=== PATIENT | male | born 1965 | race Caucasian/White ===

== ENCOUNTER 2020-11-04 06:06 | Day surgery (SDC) | payer MEDICARE, OTHER ==
[2020-11-01 11:12] LABS: COVID AG,FIA SOURCE NASOPHARYNGEAL
[~2020-11-04 06:06] MED LIST: ALBU6.7H9 IH; ALEN35TA53 PO; BACL20TA PO; BUDE10.2 IH; DULO30CA89 PO; GABA600T10 PO; MELO-108 PO; NYST100033 PO; OMEP20CA12 PO; ROPI2TAB26 PO; SODIUM CHLORIDE 0.9% 0 ML ONE; SODIUM CHLORIDE 0.9% 1,000 ML ONE; TRAM50TA4 PO; UMEC62.5 PO
[2020-11-04] MEDS ORDERED: ALBUTEROL SULFATE 2.5 MG/0.5 ML NEB SOLUTION NEB ONE (06:07)
[2020-11-04] MEDS ORDERED: BENZOCAINE 20% 50 MCG/SPRAY 57 GM TP ONE (06:07)
[2020-11-04] MEDS ORDERED: LIDOCAINE 2% 30 ML JELLY TP ONE (06:07)
[2020-11-04] MEDS ORDERED: SODIUM CHLORIDE 0.9% 1,000 ML IV ONE (06:30)
[2020-11-04] MEDS ORDERED: FentaNYL CITRATE PF 100 MCG/2 ML VIAL ONE (07:23)
[2020-11-04] MEDS ORDERED: MIDAZOLAM HCL 5 MG/ML VIAL ONE (07:24)
[2020-11-04] MEDS ORDERED: MethylPREDNISolone SOD SUCC 125 MG/2 ML VIAL IVP ONE (09:00)
[2020-11-04] MEDS ORDERED: MethylPREDNISolone SOD SUCC 125 MG/2 ML VIAL ONE (09:24)
[2020-11-04] MEDS ORDERED: OXYGEN THERAPY IH SCH (20:00)
== END 2020-11-04 10:40 | disposition home or self-care (01) ==
LOC: SURGERY 06:06
PROVIDERS: ATTEND Internal Medicine Critical Care Medicine
DX: J38.4 Edema of larynx (principal); B37.0 Candidal stomatitis; J44.9 Chronic obstructive pulmonary disease, unspecified; F17.210 Nicotine dependence, cigarettes, uncomplicated; Z79.899 Other long term (current) drug therapy; Z98.890 Other specified postprocedural states
CPT/HCPCS: 31623; 31624; 71045; 87015; 87070; 87101; 87205; 87206; 87220; 87426; 88108; 88184; 88185; 88312; C9803; J2250; J2930; J3010; J7030; J7613